=== PATIENT | male | born 1965 | race American Indian/Alaskan Native ===

== ENCOUNTER 2019-04-24 07:10 | Day surgery (SDC) | payer OTHER ==
[2019-04-24] MEDS ORDERED: WATER FOR IRRIG STERILE IR ONE (07:26)
[2019-04-24] MEDS ORDERED: WATER FOR IRRIG STERILE ONE (07:26)
[2019-04-24] MEDS ORDERED: NACL 0.9% 1000 ML 1,000 ML IV SCH (08:00)
--- NOTE | 2019-04-24 08:04 | Anesthesia Day of Surgery ---
Anesthesia Day of Surgery - Day of Surgery Patient Examined: Yes Patient H&P Reviewed: Yes Patient is NPO: Yes Beta Blockers: No
--- NOTE | 2019-04-24 08:04 | Anesthesia Consultation ---
Anesthesia Consult and Med Hx Date of service: 04/08/19 - Airway Anesthetic Teeth Evaluation: Good ROM Head & Neck: Adequate Mental/Hyoid Distance: Adequate Mallampati Class: Class II Intubation Access Assessment: Probably Good - Pulmonary Exam CTA: Yes - Cardiac Exam Cardiac Exam: No Murmur - Pre-Operative Health Status ASA Pre-Surgery Classification: ASA1 Proposed Anesthetic Plan: MAC
[2019-04-24] MEDS ORDERED: DIPRIVAN 10 MG/ML IV ONE ×2 (08:07→08:08)
[2019-04-24] MEDS ORDERED: VERSED ONE (08:38)
--- NOTE | 2019-04-24 09:24 | Procedure Note ---
Date of procedure: 04/24/19 Pre-op diagnosis: GERD/ Colon Polyp Screening Post-op diagnosis: other (Moderate,Distal Erosive Esophagitis/Gastritis/ No Colon Polyps or diverticularDisease noted/ Mild to Moderate Internal Hemorrhoid) Procedure: EGD ith Biopsy and Colonoscopy Anesthesia: MAC Surgeon: SYD JENKINS Estimated blood loss: minimal Pathology: list Specimen disposition: to lab Condition: stable Disposition: same day (Treat with PPI, avoid aspirin and NSAID for 5 days. Follow up in 1 to 2 weeks ([phone]).)
--- NOTE | 2019-04-24 09:42 | Operative Report ---
INDICATION: A 53-year-old -[place] gentleman who has been having some GERD symptoms. EGD was done to assess for the problem. DESCRIPTION OF PROCEDURE: Procedure was done with MAC anesthesia. Instrument was passed through the hypopharynx into the esophagus, which showed moderate distal erosive esophagitis. Stomach showed gastritis in the antrum. Biopsy was done from the gastric antrum, gastric body and angular incisura to rule out for H. pylori and atrophic gastritis. Additional biopsy was done from the distal esophagus to assess for the severity of the esophagitis. The pylorus is patent. The duodenum in the first and second portion appeared normal. There was minimal bleeding from the biopsy sites and no complications associated with the procedure. ASSESSMENT: Gastroesophageal reflux disease symptoms, moderate distal erosive esophagitis and gastritis. PLAN: To treat the patient with PPI, have the patient avoid aspirin and aspirin-related products. Encouraged the patient to refrain from smoking and alcohol use, which he states he does not do and have the patient follow up in the office in 1-2 weeks' time. A colonoscopy will also be done for further assessment as part of colon polyp screening. JOB# [id number] TOMY/PIA
--- NOTE | 2019-04-24 09:46 | Operative Report ---
PROCEDURE: Colonoscopy. INDICATIONS: This is a 53-year-old -[place] gentleman in otherwise good health, who has had an EGD done because of esophagitis, gastritis and GERD symptoms. Colonoscopy was done as part of colon polyp screening. Procedure was done after getting informed consent. Initial rectal exam was unremarkable. Instrument was passed through the rectum onto the cecum, which was identified with ileocecal valve and appendiceal orifice. Visualization was fair. The mucosa was washed and the fluid was suctioned out. There was no significant pathology noted in the cecum, ascending colon, transverse colon, descending colon and sigmoid. The rectum showed mild to moderate internal hemorrhoids on the retroverted view. ASSESSMENT: Colon polyp screening, no colon polyps noted. Mild to moderate internal hemorrhoids. No diverticular disease. Prep was fair. PLAN: To resume previous medication. The patient will be treated with PPI because of the upper GI findings of esophagitis, gastritis. DESCRIPTION OF PROCEDURE: The procedure was done in the GI lab in the presence of Lucy PIZARRO. Both the EGD and the colonoscopy was done in the presence of Lucy PIZARRO and Chayito wong. The patient will be asked to follow up in the office in 1-2 weeks' time and to refrain from using aspirin and aspirin-related products since there were some biopsies done during the EGD. JOB# [id number] TOMY/PIA STRONG
[2019-04-24 09:58] VITALS: BP 125/80
[2019-04-24] MEDS ORDERED: XYLOCAINE MPF 2% ONE (11:00)
== END 2019-04-24 07:11 | disposition home or self-care (01) ==
LOC: GIO 07:10
DX: Z12.11 Encounter for screening for malignant neoplasm of colon (principal); K21.0 Gastro-esophageal reflux disease with esophagitis; K64.8 Other hemorrhoids; K29.70 Gastritis, unspecified, without bleeding; Z79.899 Other long term (current) drug therapy
CPT/HCPCS: 43239; 45378; 88305; 88342; J2250; J2704; J7030